=== PATIENT | male | born 1990 | race Caucasian/White ===

== ENCOUNTER 2016-10-17 12:25 | Emergency (ER) | payer OTHER ==
[~2016-10-17] VITALS: Ht 177.8 cm; Wt 65.0 kg
[2016-10-17 12:34] VITALS: BP 142/56; PULSE 84; RESP 15; TEMP 97.7; O2SAT 98
--- NOTE | 2016-10-17 13:34 | PD ---
HPI Chief Complaint: Injury Time Seen by Provider: 13:34 Travel History International Travel<30 days: No Contact w/Intl Traveler<30days: No Traveled to known affect area: No History of Present Illness HPI Patient is a 25-year-old male presenting to the emergency for evaluation of left ankle pain. Patient states he did a back flip on Wednesday injuring his ankle. He has been unable to bear weight, he reports the pain as a 6 out of 10. He denies any numbness or tingling. He denies any head injury or loss of consciousness, he denies any other pain at this time. [facility] Past Medical History Medical History: Denies Significant Hx Social History Alcohol Use: Yes (socially) Tobacco Use: No Substance Use: No Allergies-Medications (Allergen,Severity, Reaction): Coded Allergies: No Known Allergies (Unverified , 10/17/16) Review of Systems Except as stated in HPI: all other systems reviewed are Neg Musculoskeletal: Positive: Myalgias, Arthralgias, Edema, Pain Physical Exam Narrative GENERAL: Well-nourished, well-developed patient. SKIN: Warm and dry. HEAD: Normocephalic. EYES: No scleral icterus. No injection or drainage. NECK: Supple, trachea midline. No JVD or lymphadenopathy. CARDIOVASCULAR: Regular rate and rhythm without murmurs, gallops, or rubs. RESPIRATORY: Breath sounds equal bilaterally. No accessory muscle use. GASTROINTESTINAL: Abdomen soft, non-tender, nondistended. MUSCULOSKELETAL: No cyanosis, mild edema to the medial aspect of the left ankle , no obvious deformity noted. Positive pedal pulses, brisk less than 3 second capillary refill. Decreased range of motion with flexion and extension of left ankle. BACK: Nontender without obvious deformity. No CVA tenderness. Data Data Last Documented VS Vital Signs Date Time Temp Pulse Resp B/P Pulse Ox O2 Delivery O2 Flow Rate FiO2 10/17/16 12:34 97.7 84 15 142/56 98 Orders Ankle, Complete ([id number]) (10/17/16 ) Crutches (10/17/16 14:26) ^ Yan Bandage (10/17/16 14:26) MDM Medical Decision Making Medical Screen Exam Complete: Yes Emergency Medical Condition: Yes Interpretation(s) Last Impressions Ankle X-Ray 10/17/16 0000 Signed Impressions: Service Date/Time: Monday, October 17, 2016 13:51 - CONCLUSION: No acute left ankle abnormality is identified. Arnoldo Porter MD Vital Signs Date Time Temp Pulse Resp B/P Pulse Ox O2 Delivery O2 Flow Rate FiO2 10/17/16 12:34 97.7 84 15 142/56 98 Differential Diagnosis Sprain versus strain versus fracture versus other Narrative Course Patient is a 22-year-old male presenting to the emergency department evaluation of left ankle pain that started after he did a back flip yesterday. Patient is neurovascularly intact. Imaging ordered and pending. X-ray of the left ankle shows no acute abnormality. Patient be placed in an Yan wrap for comfort and given crutches for support. He is encouraged to rest, ice, elevate extremity. He is encouraged to follow-up with his primary doctor. He is encouraged to advance weight-bearing as tolerated. He is encouraged to continue range of motion exercises. Furthermore patient was encouraged to return to emergency department for any new or worsening symptoms. Patient verbalized understanding of these instructions. Patient is stable for discharge. Diagnosis Primary Impression: Ankle sprain Qualified Code: S93.402A - Sprain of left ankle, unspecified ligament, initial encounter Referrals: Primary Care Physician Patient Instructions: Ankle Exercises (GEN), Ankle Sprain (DC), General Instructions Additional Instructions: Follow-up with her primary doctor Rest, ice, elevate extremity Weight bear as tolerated Take [id number] acetaminophen or ibuprofen as needed and as directed for pain Return to emergency department for any new or worsening symptoms Med/Other Pt SpecificInfo: No Change to Meds Disposition: 01 DISCHARGE HOME Condition: Stable Sue Galvan Oct 17, 2016 13:34
--- NOTE | 2016-10-17 14:18 | RADRPT ---
EXAM DATE/TIME: 10/17/2016 13:51 [facility] COMPARISON: No previous studies available for comparison. INDICATIONS : Patient did backflip and landed on left ankle. Complains of left ankle pain. MEDICAL HISTORY : None. SURGICAL HISTORY : None. ENCOUNTER: Initial ACUITY: 2 days PAIN SCORE: 8/10 LOCATION: Left Ankle FINDINGS: 3 views the left ankle demonstrate no fracture or dislocation. Ankle mortise is intact. Mineralizatio n is within normal limits and there is no significant arthropathy. No soft tissue abnormality or radi opaque foreign body is identified. CONCLUSION: No acute left ankle abnormality is identified. Arnoldo Porter MD on October 17, 2016 at 14:16 Board Certified Radiologist. This report was verified electronically.
== END 2016-10-17 14:59 | disposition home or self-care (01) ==
LOC: NEPB 12:25
DX: S93.402A Sprain of unspecified ligament of left ankle, initial encounter (principal); W18.39XA Other fall on same level, initial encounter; Y93.43 Activity, gymnastics; Y92.9 Unspecified place or not applicable
CPT/HCPCS: 73610; 99283; E0113